=== PATIENT | male | born 1990 | race African-American/Black ===

== ENCOUNTER 2018-01-21 13:11 | Emergency (ER) | payer SELFPAY ==
[~2018-01-21] VITALS: Ht 188 cm; Wt 89.0 kg
[2018-01-21 13:38] VITALS: BP 145/101
== END 2018-01-21 16:00 | disposition left against medical advice (07) ==
LOC: ER 15:32
DX: R07.89 Other chest pain (principal); I25.2 Old myocardial infarction; Z95.0 Presence of cardiac pacemaker; Z87.828 Personal history of other (healed) physical injury and trauma
CPT/HCPCS: 93005; 99283; Z7610